=== PATIENT | male | born 1995 | race Hispanic/Latino ===

== ENCOUNTER 2016-06-24 23:40 | Emergency (ER) | payer OTHER ==
[~2016-06-24] VITALS: Ht 167.6 cm; Wt 77.3 kg
[2016-06-24 23:47] VITALS: BP 113/65; PULSE 101; RESP 20; O2SAT 96
--- NOTE | 2016-06-25 00:05 | ED.REPORT ---
HPI-General Illness Date of Service Jun 25, 2016 ED Provider: Vita BeckfordO. A 21 year old male with a history of recurrent otitis media presents to the ED with right ear pain onset tonight. The patient also reports 3-4 days of productive cough with green sputum, diarrhea, nausea, vomiting, and chronic back pain. He denies lower extremity numbness, lower extremity weakness, bowel incontinence, fever, or other symptoms. Nursing Notes Stated Complaint: COLD SYMPTOMS Chief Complaint: General Complaint Nursing Notes Reviewed: Yes Allergies: Coded Allergies: Sulfa (Sulfonamide Antibiotics) (Verified Allergy, Unknown, 03/17/15) amoxicillin (Verified Allergy, Unknown, 03/17/15) No Active Prescriptions or Reported Meds General Time Seen by MD: 00:05 Chief Complaint Ear pain Hx Obtained From: Patient Arrived By: Walk-in Onset Occurred: 5 - 8 hours ago Symptom Duration: Since onset Location: : Ear right Quality: Painful Severity: Current: Moderate Severity: Maximum: Moderate Associated with: Reports: Cough, Nausea, Vomiting, Denies: Fever Pertinent Negative: Relieved by nothing Recent Healthcare: No recent doctor visit Similar Sx Previous: Yes Past Medical History Past Medical History Recurrent otitis media Past Surgical History None reported Smoking History Current Some Day Smoker Social History Cocaine use Other Social History: Good social support Ambulatory Status Independent Review of Systems - Lower extremity paresthesias Full Review of Systems Constitutional: Denies: Fever Ears / Nose / Throat: Reports: Earache right Respiratory: Reports: Prod cough, green GI: Reports: Diarrhea, Nausea, Vomiting Musculoskeletal: Reports: Back pain (Chronic) Neurologic: Denies: Bowel dysfunction, Numbness, Weakness Complete sys rev & neg: except as marked. Physical Exam Vital Signs Vital Signs Date Time Temp Pulse Resp B/P Pulse Ox O2 Delivery O2 Flow Rate FiO2 06/24/16 23:47 36.2 101 20 113/65 96 Room Air Initial VS: Reviewed Head / Eyes: Atraumatic, Normocephalic Neck: Supple, Full range of motion Respiratory: Breath sounds normal, Clear to auscultation, No respiratory distress Cardiovascular: Regular rate & rhythm, Heart sounds normal Extremities: Vascular intact, Neuro intact Skin: Warm, Dry, No cyanosis Neurologic: Alert, Oriented, Nonfocal Psychiatric: Mood/affect normal, Behavior normal, Normal thought content General/Constitutional: Awake, Alert, No acute distress ENT: Airway patent, Mucous membranes moist Right Ear / Mastoid: Positive: Tympanic membrane bulging, Tympanic membrane red Neurologic: Oriented X3, Speech NL, No motor deficits, No sensory deficits, CN II - XII intact, Reflexes equal bilat, Cerebellar NL, Memory NL, Gait NL Re-Eval/Medical Decision Source of Hx: Old records Time of Eval: 01:00 Patient Status: Condition improved Re-Evaluation/Progress Note: Discussed with patient physical exam findings, diagnosis, and plan for discharge. Follow-up and return to the ER instructions given. Patient agrees with plan for care and all questions were addressed. Counseled Regarding: Diagnosis, Need for follow-up, When/why to return to ED Discharge & Departure Primary Impression: Otitis media Otitis media type: suppurative Laterality: right Chronicity: acute Recurrence: not specified Spontaneous tympanic membrane rupture: without spontaneous rupture Qualified Code: H66.001 - Acute suppurative otitis media without spontaneous rupture of ear drum, right ear Additional Impression: Chronic low back pain Back pain laterality: unspecified Sciatica presence: without sciatica Qualified Code: M54.5 - Low back pain Disposition: Home Discharge Condition All VS Reviewed: Yes Condition: Improved Patient Instructions: Acute Low Back Pain (ED), Otitis Media (ED) Additional Instructions: Thank you for entrusting us with your care. Finish the Z-Pack as directed. Medrol dose pack as directed. 1-2 Pierson every six hours as needed for pain. Do not drink alcohol, drive, or consume acetaminophen while taking Pierson. Call your primary care provider tomorrow for a follow-up appointment in 2-3 days. Return to the ER with any new or worsening symptoms. Referrals: Neo Sanders MD (PCP) Scribe Attestation Portions of this note were transcribed by Marge Howe. I, Dr. Ortiz, personally performed the history, physical exam, and medical decision-making; I reviewed and confirmed the accuracy of the information in the transcribed note. Signed by: Dar Birones, 06/25/2016, 01:55 copies to: eNo Sanders MD, Todd P DO Jun 25, 2016 00:05 MARGE HOWE Jun 25, 2016 00:33
[2016-06-25] MEDS ORDERED: Ketorolac 30 mg/mL 2 mL Inj IM ONE (00:30)
[2016-06-25] MEDS ORDERED: _HYDROcodone/APAP 5-325 mg Tablet PO PRN (00:30)
== END 2016-06-25 00:38 | disposition home or self-care (01) ==
LOC: SED 23:40
DX: H66.001 Acute suppurative otitis media without spontaneous rupture of ear drum, right ear (principal); M54.5 Low back pain; G89.29 Other chronic pain; R05 Cough; R19.7 Diarrhea, unspecified; R11.2 Nausea with vomiting, unspecified; F17.200 Nicotine dependence, unspecified, uncomplicated; Z88.1 Allergy status to other antibiotic agents; Z88.2 Allergy status to sulfonamides
CPT/HCPCS: 99282; J1885

== ENCOUNTER 2016-06-30 21:00 | Emergency (ER) | payer OTHER ==
[~2016-06-30] VITALS: Ht 167.6 cm; Wt 81.8 kg
[2016-06-30 21:04] VITALS: BP 123/67; PULSE 62; RESP 16; O2SAT 97
--- NOTE | 2016-06-30 22:59 | ED.REPORT ---
HPI-Back Pain Under 40 Date of Service Jun 30, 2016 ED Provider: Neha Youngblood MD A 21 year old male presents to the ED complaining of back pain that began a few days ago. Patient states that he has been moving furniture recently. The pain does not radiate and has been constant since onset. Patient states that he took 1 Vicodin that provided little relief. He denies any bladder or bowel incontinence, dysuria, hematuria, numbness, weakness or fever. Nursing Notes Stated Complaint: CANT TOLERATE LOWER BACK PAIN,DISCOMFORT Chief Complaint: Back Pain or Injury Nursing Notes Reviewed: Yes Allergies: Coded Allergies: Sulfa (Sulfonamide Antibiotics) (Verified Allergy, Unknown, 06/30/16) amoxicillin (Verified Allergy, Unknown, 06/30/16) Scheduled Methocarbamol (Robaxin) 500 Mg Tablet 1,000 MG PO TID Scheduled PRN Famotidine (Pepcid) 20 Mg Tablet 20 MG PO BID PRN PRN For Epigastric Distress Meloxicam (Mobic) 7.5 Mg Tablet 7.5 MG PO DAILY PRN PRN For Pain General Time Seen by MD: 22:54 Chief Complaint Back pain Hx Obtained From: Patient Arrived By: Walk-in Sudden in Onset?: No Onset Occurred: 3 days ago Symptom Duration: Since onset Location: : Generalized Quality: Painful Radiation: : Does not radiate Severity: Current: Mild Severity: Maximum: Moderate Associated with: Denies: Dysuria, Fever, Incontinence bladder, Incontinence bowel, Numbness both low ext, Numbness left low ext, Numbness right low ext, Tingling left lower ext, Tingling right lower ext, Weakness both lower ext, Weakness left lower ext, Weakness right lower ext Pertinent Negative: Pt denies other symptoms Recent Healthcare: No recent hospitalization, Recent doctor visit Past Medical History Past Medical History Recurrent otitis media Past Surgical History None reported Smoking History Current Some Day Smoker Social History Drug Use: Cocaine Other Social History: Good social support, Local resident Ambulatory Status Independent Review of Systems Constitutional: Denies: Chills, Fever Respiratory: Denies: Shortness of breath Cardiovascular: Denies: Chest pain GI: Denies: Abdominal pain, Nausea, Vomiting Male: Denies Dysuria, Denies Hematuria, Denies Incontinence Musculoskeletal: Reports: Back pain Neurologic: Denies: Change LOC, Focal weakness, Numbness, Weakness Complete sys rev & neg: except as marked. Physical Exam Initial Vital Signs Vital Signs (First) Date Time Temp Pulse Resp B/P Pulse Ox O2 Delivery O2 Flow Rate FiO2 06/30/16 21:04 36.6 62 16 123/67 97 Room Air Initial VS: Reviewed Head / Eyes: Atraumatic, Normocephalic, PERRL Skin: Warm, Dry, No cyanosis Psychiatric: Mood/affect normal, Behavior normal, Normal thought content General/Constitutional: Awake, Alert, No acute distress Back: Atraumatic, Inspection NL, No midline vertebral tend, Straight leg raise neg Flank / Spine / Paraspinal: Positive: Lumbar paraspinal tend... (Mild right tenderness), Negative: Sacral paraspinal tend..., Sacral spine tender..., Thorac paraspinal tend..., Thoracic spine tender... Neurologic: Oriented X3, Speech NL, No motor deficits, No sensory deficits, CN II - XII intact, Reflexes equal bilat NEURO: 5/5 strength in lower extremities Neck: Atraumatic, Supple, No midline vertebral tend Respiratory / Chest: Atraumatic, Breath sounds NL, Breath sounds = bilat Cardiovascular: Heart rate NL, Regular rhythm, Heart sounds NL Abdomen: Atraumatic, Soft, Non-tender Lower Extremity / Pelvis / MS: Atraumatic, Inspection NL, Neurologic intact, Vascular intact Upper Extremity / MS: Atraumatic, Inspection NL, Neurologic intact, Vascular intact Re-Eval/Medical Decision Med Decision/Clinical Course 21-year-old male with no past medical history here with low back pain after moving heavy furniture recently. Differential diagnosis includes but is not limited to muscle spasm versus sciatica versus muscle sprain versus drug- seeking behavior. Patient has no neurologic symptoms, and no fevers, and at this time, I do not feel he has cauda equina syndrome or epidural abscess. He was given Robaxin in the emergency department, and a prescription for Robaxin, Mobic, and Pepcid he developed stomach upset from the Mobic. He has been given very strict return precautions and is amenable to discharge at this time with follow-up with his primary care physician. Re-Evaluation/Progress : Time of Eval: 23:15 Patient Status: Condition improved Re-Evaluation/Progress Note: Patient is rechecked and his reports that his symptoms have improved. All of the patient's questions are adressed. He understands and agrees with the treatment plan to discharge. Counseled Regarding: Diagnosis, Need for follow-up, When/why to return to ED Discharge & Departure Impression: Primary Impression: Low back pain Chronicity: unspecified Back pain laterality: unspecified Sciatica presence : without sciatica Qualified Code: M54.5 - Low back pain Disposition: Home All VS Reviewed: Yes Condition: Improved Patient Instructions: Low Back Strain (ED) Additional Instructions: Thank you for trusting us with your care this evening. Your emergency department evaluation is reassuring that there is no dangerous cause for concern at this time. Please schedule a follow-up appointment with your primary care physician in the next 2-3 days for a recheck. Take Mobic and Robaxin as prescribed. Please return to the emergency department for any new or worsening conditions including any difficulty breathing, numbness/tingling, or incontinence. Referrals: Neo Sanders MD (PCP) Scribe Attestation Portions of this note were transcribed by Gladis Alfred. I, Dr. Youngblood personally performed the history, physical exam and medical decision-making; I reviewed and confirmed the accuracy of the information in the transcribed note. Signed by: Dar Pettit, 07/01/16 0000. copies to: Neo Sanders MD, Rebecca A MD Jun 30, 2016 22:59 GLADIS ALFRED Jun 30, 2016 23:09
[2016-06-30] MEDS ORDERED: MELO7.5T13 PO (23:12)
[2016-06-30] MEDS ORDERED: METH500T PO (23:12)
[2016-06-30] MEDS ORDERED: FAMO20T PO (23:13)
[2016-06-30 23:25] VITALS: BP 128/71; PULSE 67; RESP 16; O2SAT 99
== END 2016-06-30 23:26 | disposition home or self-care (01) ==
LOC: SED 21:00
DX: M54.5 Low back pain (principal); X50.0XXA Overexertion from strenuous movement or load, initial encounter; Y92.9 Unspecified place or not applicable; Y93.E6 Activity, residential relocation; Y99.8 Other external cause status; F17.200 Nicotine dependence, unspecified, uncomplicated; Z88.2 Allergy status to sulfonamides; Z88.0 Allergy status to penicillin

== ENCOUNTER 2016-07-28 18:39 | Emergency (ER) | payer OTHER ==
[~2016-07-28] VITALS: Ht 167.6 cm; Wt 80.9 kg
[~2016-07-28 18:39] MED LIST: FAMO20T PO; MELO7.5T13 PO; METH500T PO
[2016-07-28 18:44] VITALS: BP 119/73; PULSE 84; RESP 13; O2SAT 99
--- NOTE | 2016-07-28 20:19 | ED.REPORT ---
HPI-Back Pain Under 40 Date of Service Jul 28, 2016 ED Provider: Dr. Ortiz A 21 year old male presents to the ED complaining of back pain which radiates into the patient's legs. Pain is exacerbated by bending, and he has limited ROM of the back because of it. Back pain onset several months ago after the patient injured his back lifting furniture while moving. During last ED visit on 06/30/2016, the patient started feeling back muscle spasms that have persisted since. He denies having any fever today, but did have a fever recently. He denies any difficulty with urination or defecation. He was given ibuprofen and muscle relaxers but they have not resulted in any relief, and he has stopped taking them. He is not currently on any pain medication. He has not had MRI performed. He has not been seen by PCP for the back pain. Nursing Notes Stated Complaint: LEFT LOWER BACK PAIN Chief Complaint: Back Pain or Injury Nursing Notes Reviewed: Yes Allergies: Coded Allergies: Sulfa (Sulfonamide Antibiotics) (Verified Allergy, Unknown, 06/30/16) amoxicillin (Verified Allergy, Unknown, 06/30/16) Scheduled Methocarbamol (Robaxin) 500 Mg Tablet 1,000 MG PO TID Scheduled PRN Famotidine (Pepcid) 20 Mg Tablet 20 MG PO BID PRN PRN For Epigastric Distress Meloxicam (Mobic) 7.5 Mg Tablet 7.5 MG PO DAILY PRN PRN For Pain General Time Seen by MD: 20:19 Chief Complaint Back pain Hx Obtained From: Patient, Other family... Arrived By: Walk-in Sudden in Onset?: No Onset Occurred: More than a week ago... (several months ago) Symptom Duration: Since onset Caused by: Lifting (Moving furniture) Severity: Current: Moderate Severity: Maximum: Severe Recent Healthcare: Recent doctor visit (ED visit on 06/30/2016) Past Medical History Past Medical History Notes: Dr. Sanders is PCP. Past Medical History Recurrent otitis media. Patient injued back moving furniture several months ago. Past Surgical History None reported Smoking History Current Some Day Smoker Social History Drug Use: Cocaine Other Social History: Good social support, Local resident Ambulatory Status Independent Review of Systems Review of Systems Note: Denies difficulty with urination or defecation. Constitutional: Denies: Chills, Fever Respiratory: Denies: Non-productive cough Cardiovascular: Denies: Chest pain Musculoskeletal: Reports: Back pain (With muscle spasms), Extremity pain (Pain radiates from back into legs) Complete sys rev & neg: except as marked. Physical Exam Initial Vital Signs Vital Signs (First) Date Time Temp Pulse Resp B/P Pulse Ox O2 Delivery O2 Flow Rate FiO2 07/28/16 18:44 36.6 84 13 119/73 99 Room Air Initial VS: Reviewed General/Constitutional: Awake, Alert Back: No midline vertebral tend No bony point tenderness of midline tenderness. No signs of cord syndrome. Pain is worse with bending over and standing up. Neurologic: Oriented X3, Speech NL Neck: Atraumatic, No swelling Respiratory / Chest: Atraumatic, Breath sounds NL, Breath sounds = bilat, No respiratory distress, No rales, No rhonchi, No wheezing Cardiovascular: Heart rate NL, Regular rhythm, Heart sounds NL, No gallop, No murmurs, No rubs Abdomen: No guarding, No rebound Head / Eyes: Atraumatic, Normocephalic, PERRL, EOMI ENT: Atraumatic, Mucous membranes moist Skin: Atraumatic, Color NL, Warm, Dry Re-Eval/Medical Decision Source of Hx: Old records Re-Evaluation/Progress : Time of Eval: 20:32 Re-Evaluation/Progress Note: Explained plan to give patient pain medication. Explained plan for discharge. Patient understands and agrees with the plan. All questions addressed. Counseled Regarding: Diagnosis, Lab results, Need for follow-up, When/why to return to ED Discharge & Departure Shift Change Sign-Out Response to Therapy: Improved Impression: Primary Impression: Low back pain Chronicity: acute Back pain laterality: right Sciatica presence: with sciatica Sciatica laterality: sciatica of right side Qualified Code: M54.41 - Lumbago with sciatica, right side Disposition: Home All VS Reviewed: Yes Condition: Stable Patient Instructions: Low Back Strain (ED), Lumbar Radiculopathy (ED) Additional Instructions: Set up a follow-up with your primary care physician. If symptoms persist you may need an MRI. If you develop a fever, any weakness or any worsening symptoms then return to the emergency department. Finish the Medrol Dosepak. Take 1-2 Percocet every 6 hours as needed for severe pain. Do not drive or drink alcohol or consume acetaminophen while taking the Percocet. Read the after care instructions given. Return if any problems or any worsening symptoms. Referrals: Neo Sanders MD (PCP) Dar Attestation Portions of this note were transcribed by Kev Blas. I, Dr. Ortiz personally performed the history, physical exam and medical decision-making; I reviewed and confirmed the accuracy of the information in the transcribed note. Signed by: Dar Araujo, 07/29/2016, 0308. copies to: Neo Sanders MD, Todd P DO Jul 28, 2016 20:19 Kev Blas Jul 28, 2016 20:33
[2016-07-28] MEDS ORDERED: Dexamethasone 10 mg/mL Inj IM ONE (20:40)
[2016-07-28] MEDS ORDERED: HYDROcodone-APAP 5-325 mg Tablet PO ONE (20:40)
[2016-07-28] MEDS ORDERED: oxyCODONE-Acetamin 5-325 mg Tablet PO ONE (21:30)
== END 2016-07-28 21:44 ==
LOC: SED 18:39
DX: M54.41 Lumbago with sciatica, right side (principal); F17.200 Nicotine dependence, unspecified, uncomplicated; Z88.2 Allergy status to sulfonamides; Z88.1 Allergy status to other antibiotic agents
CPT/HCPCS: 96372; 99284; J1100; J1885

== ENCOUNTER 2016-08-20 21:35 | Emergency (ER) | payer OTHER ==
[~2016-08-20] VITALS: Ht 167.6 cm; Wt 81.0 kg
[2016-08-20 21:46] VITALS: BP 129/75; PULSE 88; RESP 16; O2SAT 98
--- NOTE | 2016-08-20 22:29 | ED.REPORT ---
HPI-Back Pain Under 40 Date of Service August 20, 2016 ED Provider: Oskar Sommers MD Nursing Notes Stated Complaint: BACK PAIN Chief Complaint: Back Pain or Injury Allergies: Coded Allergies: Sulfa (Sulfonamide Antibiotics) (Verified Allergy, Unknown, 06/30/16) amoxicillin (Verified Allergy, Unknown, 06/30/16) Scheduled Methocarbamol (Robaxin) 500 Mg Tablet 1,000 MG PO TID Scheduled PRN Famotidine (Pepcid) 20 Mg Tablet 20 MG PO BID PRN PRN For Epigastric Distress Meloxicam (Mobic) 7.5 Mg Tablet 7.5 MG PO DAILY PRN PRN For Pain General Time Seen by MD: 21:54 Past Medical History Past Medical History Notes: Dr. Sanders is PCP. Past Medical History Recurrent otitis media. Patient injued back moving furniture several months ago. Past Surgical History None reported Smoking History Current Some Day Smoker Social History Drug Use: Cocaine Other Social History: Good social support, Local resident Ambulatory Status Independent Physical Exam Initial Vital Signs Vital Signs (First) Date Time Temp Pulse Resp B/P Pulse Ox O2 Delivery O2 Flow Rate FiO2 08/20/16 21:46 36.4 88 16 129/75 98 Discharge & Departure Referrals: Neo Sanders MD (PCP) Oskar Sommers MD August 20, 2016 22:29
== END 2016-08-20 23:07 | disposition left against medical advice (07) ==
LOC: SED 21:35
DX: Z53.20 Procedure and treatment not carried out because of patient's decision for unspecified reasons (principal)